=== PATIENT | female | born 1995 | race Caucasian/White ===

== ENCOUNTER 2020-05-31 06:51 | Inpatient (IN) | payer OTHER, SELFPAY ==
[2020-05-31] VITALS (96 sets, daily range): BP systolic 95–142; BP diastolic 53–96; PULSE 40–160; RESP 18; TEMP 35.6–36.9; O2SAT 83–100; BMI 33.5
[2020-05-31 07:46] LABS: Basophils Percent Auto 0.2 % (0.2-1.2); Eosinophils Absolute Auto 0.1 K/mm3 (0-0.3); Eosinophils Percent Auto 0.9 % (0-4.4); Hematocrit 33.4 % (37.0-47.0); Hemoglobin 11.6 g/dL (12.0-15.0); Immature Granulocyte Absolute 0.07 K/mm3 (0.00-0.031); Immature Granulocyte Percent A 0.8 % (0-0.5); Lymphocytes Absolute Auto 2.22 K/mm3 (0.9-3.2); Lymphocytes Percent Auto 24.9 % (18.3-44.2); Mean Corpuscular HGB Conc 34.7 g/dl (32-36); Mean Corpuscular Hemoglobin 29.1 pg (26-34); Mean Corpuscular Volume 83.9 fl (80-100); Mean Platelet Volume 10.3 fl (7.4-10.4); Monocytes Absolute Auto 0.5 K/mm3 (0.1-0.6); Neutrophils Absolute Auto 6.1 K/mm3 (1.3-6.7); Neutrophils Percent Auto 68.2 % (45.5-73.1); Platelet Count Result 228 k/mm3 (150-375); Red Blood Count 3.98 M/mm3 (4.2-5.4); Red Cell Distribution Width 12.9 % (11.5-14.5); White Blood Count 8.9 K/mm3 (4.5-10.0)
--- NOTE | 2020-05-31 07:50 | WPDOBADMIT ---
Obstetrics - Admit Note Admission Note: record reviewed. No pertinent additions to the history and/or any subsequent changes in the physical findings that are not consistent with the expected course of the were found. MIL , postdates, atttempted arom, /-3, Additions to the history and/or subsequent changes in the physical findings follow. None.
--- NOTE | 2020-05-31 07:55 | P.PNAN_ITS ---
Anes - Eval Pre Procedure Procedure: labor epidural Date/Time: 05/31/20 07:55 Preop Diagnosis: labor pain Pre Op Diagnosis: Induction of Labor Patient Data Age: 24 Gender: F Height: Weight: Last Vital Signs Temp 36.1 C L 05/31/20 07:52 Pulse 107 H 05/31/20 07:46 BP 127/84 05/31/20 07:46 Allergies Allergy/AdvReac Type Severity Reaction Status Date / Time Penicillins Allergy Mild Rash Verified 04/27/20 12:35 Home Medications Medication Instructions Recorded Confirmed Type PNV cmb#95-ferrous fumarate-FA 1 tablet PO DAILY 04/27/20 04/27/20 History [] aspirin [Aspirin Childrens] 81 mg PO DAILY 04/27/20 04/27/20 History cranberry-B.keqorsoe-X-Qv phos 1 tablet PO 04/27/20 History [Cranberry-Probiotic] ferrous sulfate 143 mg PO DAILY 04/27/20 04/27/20 History Laboratory Tests 05/31/20 05/31/20 07:30 07:30 WBC 8.9 K/mm3 K/mm3 (4.5-10.0) RBC 3.98 M/mm3 L M/mm3 (4.2-5.4) Hgb 11.6 g/dL L g/dL (12.0-15.0) Hct 33.4 % L % (37.0-47.0) MCV 83.9 fl fl (80-100) MCH 29.1 pg pg (26-34) MCHC 34.7 g/dl g/dl (32-36) RDW 12.9 % % (11.5-14.5) Plt Count 228 k/mm3 k/mm3 (150-375) MPV 10.3 fl fl (7.4-10.4) Immature Gran % (Auto) 0.8 % H % (0-0.5) Neut % (Auto) 68.2 % % (45.5-73.1) Lymph % (Auto) 24.9 % % (18.3-44.2) [place] % (Auto) 5.0 % % (2.6-8.5) Eos % (Auto) 0.9 % % (0-4.4) Baso % (Auto) 0.2 % % (0.2-1.2) Lymph # (Auto) 2.22 K/mm3 K/mm3 (0.9-3.2) [place] # (Auto) 0.5 K/mm3 K/mm3 (0.1-0.6) Eos # (Auto) 0.1 K/mm3 K/mm3 (0-0.3) Baso # (Auto) 0.0 K/mm3 K/mm3 (0.0-0.1) Abs Immat Gran (auto) 0.07 K/mm3 H K/mm3 (0.00-0.031) Absolute Neuts (auto) 6.1 K/mm3 K/mm3 (1.3-6.7) Absolute Nucleated RBC 0.0 K/mm3 K/mm3 (0.0-0.012) Nucleated RBC % 0.0 % % (0.0-0.2) RPR Pending Patient hx anesthesia problems: none Family hx anesthesia problems: none PMFSH Family History Family History (Updated 04/27/20 @ 12:50 by Magi Walton RN) Grandparent Cancer Hypertension Diabetes mellitus type 2, controlled Mother Hypertension Sibling Hypertension Social History Social History Substance use: never Spiritual care concerns: No Exam Day of Procedure 05/31/20 07:55
[2020-05-31] MEDS: LACTATED RINGERS 1,000 ML 125 ML IV CONT ×4 (08:08→18:43)
[2020-05-31] MEDS: OXYTOCIN 30 UNITS/NS 500 ML 30 UNITS/500 ML BAG IV CONT (08:08)
--- NOTE | 2020-05-31 08:25 | LDADM ---
This patient, Barbara Mancini, was admitted to Labor/Delivery/Recovery 103 on 05/31/20 at 06:51. Plans for labor, pain management and were discussed with patient. Patient/family oriented to hospital policies and general routines including ID bracelet, bed and alarms, visiting hours, pain management, procedures, bathroom and other care routines, personal items, smoking policy, room service/diet and guest tray routines, infant security routines, and visiting hours. Patient/Family are encouraged to report perceived risks to care and to ask questions if they do not understand what they are told or what they should do. See OBIX for further documentation.
[2020-05-31] MEDS: ONDANSETRON INJ 4 MG/2 ML VIAL IV PUSH (18:42)
--- NOTE | 2020-05-31 19:45 | PM.OBPRVD ---
OB - Delivery Note Procedure Delivery date: 05/31/20 Procedure: vaginal delivery Intrapartal events: None Induction method: AROM and per pitocin protocol Delivery monitor: external FHT and external uterine Route of delivery: Laceration description: Perineal - 1st Degree Delivery repair: vicryl Specimen: No Estimated blood loss (mL): 135 Anesthesia type: Epidural Disposition: other () Baby Date of : 05/31/20 Time of : 19:26 Weeks of gestation at delivery: 40 gender: Female Weight (pounds): 7 Weight (ounces): 5 presentation: vertex position: Left Occiput Anterior Placenta delivery description: Spontaneous cord vessel description: 3 Vessels and Clamped/Cut score one minute: 9 score five minutes: 9 Narrative: delayed cord clamping, skin to skin, mother and baby in stable condition. Roselyn ADLER present
[2020-05-31] MEDS: OXYTOCIN 30 UNITS/NS 500 ML 30 UNITS/500 ML BAG 125 UNITS IV CONT (20:00)
[2020-05-31] MEDS: WITCH HAZEL 40 PADS 1 PAD TOPICAL (20:12)
[2020-05-31] MEDS: BENZOCAINE 20% AER SPR (*SP) 56 GM CAN 1 SPRAY TOPICAL (20:12)
[2020-05-31] MEDS: ACETAMINOPHEN 500 MG TABLET 1000 MG PO (20:13)
[2020-05-31] MEDS: IBUPROFEN 600 MG TABLET PO (22:37)
[2020-06-01 05:19] LABS: Hematocrit 31.6 % (37.0-47.0); Hemoglobin 10.6 g/dL (12.0-15.0)
--- NOTE | 2020-06-01 07:21 | WPDANLDPN2 ---
Anes-Prog Note L&D Date/Time: 06/01/20 07:21 Comfortable throughout: labor and delivery Neuraxial method: epidural Epidural/Spinal procedure site: clean & non-tender Neuro status: Neuro function grossly intact. Cardiovascular status: normal Respiratory status: normal Airway patency: baseline Mental status: baseline Post-Op hydration status: normal Vital Signs: Last Vital Signs Temp 36.8 C 05/31/20 22:25 Pulse 89 05/31/20 22:25 Resp 18 05/31/20 22:25 BP 113/72 05/31/20 22:25 Pulse Ox 83 L 05/31/20 19:27 I/O: Intake & Output 05/31/20 05/31/20 06/01/20 15:59 23:59 07:59 Intake Total 1000 3500 Output Total 900 135 Balance 100 3365 Post-procedural complaints: none Patient feedback: Patient satisfied with anesthetic care.
--- NOTE | 2020-06-01 07:24 | P.PNOB_ITS ---
OB - PN: Subj Subjective Date/time seen: 06/01/20 07:24 OB - PN: Obj Data Labs CBC & Chem 7: 06/01/20 04:24 Labs: Laboratory Results - last 24 hr 05/31/20 05/31/20 06/01/20 07:30 07:30 04:24 WBC 8.9 RBC 3.98 L Hgb 11.6 L 10.6 L Hct 33.4 L 31.6 L MCV 83.9 MCH 29.1 MCHC 34.7 RDW 12.9 Plt Count 228 MPV 10.3 Immature Gran % (Auto) 0.8 H Neut % (Auto) 68.2 Lymph % (Auto) 24.9 [place] % (Auto) 5.0 Eos % (Auto) 0.9 Baso % (Auto) 0.2 Lymph # (Auto) 2.22 [place] # (Auto) 0.5 Eos # (Auto) 0.1 Baso # (Auto) 0.0 Abs Immat Gran (auto) 0.07 H Absolute Neuts (auto) 6.1 Absolute Nucleated RBC 0.0 Nucleated RBC % 0.0 Blood Type O Positive Antibody Screen Negative OB - PN A/P Plan day: 1 Plan: routine care Time Spent With Patient Time: Total time spent is greater than 50% in coordination of care (as documented) at patient's floor/unit and/or counseling patient: Review of Systems Review of Systems: All systems reviewed & are unremarkable except as noted in HPI and below Exam Const: General: comfortable Resp: Effort & Inspection: normal respiratory effort Psych: Appearance: grossly normal Affect: normal affect Attitude: cooperative Judgement: Good judgement present (Psych)
[2020-06-01] MEDS: IBUPROFEN 600 MG TABLET PO ×2 (07:52→15:15)
[2020-06-01] MEDS: DOCUSATE SODIUM 100 MG CAPSULE PO ×2 (07:52→16:43)
[2020-06-01] MEDS: MULTIVIT/MIN/PREN/FOL AC/IRON TABLET 1 TAB PO (07:52)
[2020-06-01] MEDS: ACETAMINOPHEN 325 MG TABLET 650 MG PO ×3 (07:52→16:42)
[2020-06-01] MEDS: TETANUS,DIPHTHERIA,AC PERTUSSIS ADULT (0.5 ML) BOOSTRIX IM (07:53)
--- NOTE | 2020-06-01 08:00 | PC.NURSE ---
Pt introductions made and plan of care discussed per post , pain management, breast feeding, daily care activities and pending discharge to home. PT verbalized understanding of such care
[2020-06-01 08:05] VITALS: BP 125/84; PULSE 84; RESP 18; TEMP 36.2; O2SAT 99
--- NOTE | 2020-06-01 11:05 | PC.NURSE ---
Observed mother is able to independently latch with appropriate positioning/alignment. Mother reports this to be 3rd child to breastfeed, denying issues with other children. She denies any nipple discomfort, is feeding as required and waking to feed if needed. Infant has had at least 6 since effective feedings in the past 24 hours, and is currently meeting outcomes for weight, output, jaundice and feeding frequencies. Mother states she feels confident to continue effective at home. Reviewed transition to breast milk, signs of adequate intake, and engorgement/relief. Instructed to call ICP if intake/output less than required. Reviewed regular medications mother is taking. Information provided per Francia. Reviewed community resources on the [facility] website and in the Mom/Baby guide. Information on outpatient services provided. Mother has no further questions at this time.
[2020-06-01 11:40] LABS: Rapid Plasma Reagin Non-Reactive (NonReactive)
[2020-06-02 10:48] VITALS: BP 120/68; PULSE 87; RESP 20; TEMP 36.3; O2SAT 100
--- NOTE | 2020-06-03 07:26 | PM.OBDSVD ---
DS: Admitting Diagnosis Admitting Diagnosis Admitting Diagnosis: Induction of Labor OB - DS: Summary OB Procedures : None OB Procedures Intrapartum: Spontaneous Vag Delivery OB Procedures: : None Time Spent with Patient Time attestation: Total time spent providing and/or coordinating discharge services: Discharge Plan Discharge Discharging Clinician: Sharon Tate Patient Disposition: Home, Self-Care Activity: pelvic rest Diet: regular Discharge Instructions: Education: Mom and Baby Guide Given to: Mother Follow-Up: Call your delivering provider's office for an appointment to be seen in: 4 Weeks Mom and baby should come to the [facility] for the follow-up appointment. Appointment Date/Time: June 02, 2020 at 10:00 am What to expect at your follow-up visit: Blood Pressure Check Call [phone] if you are unable to keep your appointment time. BREAST CARE: * Wear a snug supportive bra. * For engorgement discomfort: Breast Feeding: * Apply warm moist washcloths * Express milk as needed to relieve engorgement * Wear loose clothing Bottle Feeding: * May apply ice packs * For sore nipples: * Identify correct latch-on * Apply warm moist washcloths before and after nursing * Air dry nipples after nursing * May apply [place] cream to nipples PERINEAL CARE: * Until bleeding stops, use your eliza bottle after urinating * Change your pad frequently throughout the day * You may take sitz baths several times a day (fill your bathtub with warm water and soak for 20 minutes.) Do NOT bathe in the water * No tub baths until seen by your physician - You may shower ACTIVITY: * Rest as much as possible. * Do not exercise or lift anything heavier than your baby (such as laundry or other children.) * Avoid stairs or driving as much as possible. * Do not put anything into the vagina. No douching, tampons, or sexual activity until seen by physician. NOTIFY PHYSICIAN IF YOU HAVE ANY QUESTIONS OR IF ANY OF THE FOLLOWING SYMPTOMS OCCUR: * If your perineum becomes red, swollen, or more painful than what you have experienced in the hospital. * If your vaginal bleeding becomes foul smelling. * If your vaginal bleeding becomes more heavy than a period or if your bleeding changes from pink to bright red. However, you may pass an occasional walnut-sized clot once or twice for the first week . * If you experience a sharp, shooting pain in you calves. * If you discover a hard, reddened area on your breast or if you experience flu-like symptoms. * If you have a fever of 100.4 or greater DIET: * Eat regular, well-balanced meals. * Drink plenty of fluids daily. If , drink to thirst. Patient Instructions: Antibiotic Form Stand Alone Forms: General Discharge Information Follow-up/Referrals: Sharon Tate CNM [Certified Nurse Net Mender] - 4 Weeks Discharge Medications: Continued ferrous sulfate 143 mg (45 mg iron) Tablet Extended Release 143 mg PO DAILY RF: 0 PNV cmb#95-ferrous fumarate-FA [] 28 mg iron- 800 mcg Tablet 1 tablet PO DAILY RF: 0 Discontinued aspirin [Aspirin Childrens] 81 mg Tablet,Chewable 81 mg PO DAILY RF: 0 Date of admission: 05/31/20 06:51 Primary Care Provider: Jenni Dumont Admitting Provider: Sami Camejo Discharge Date/Time: 06/01/20 22:10 Attending physician on admission: Sami Camejo
== END 2020-06-01 22:10 | disposition home or self-care (01) | DRG 807 ==
LOC: ANHLDR 07:29 → ANHOB2 22:04
PROVIDERS: Advanced Practice Midwife; Admitting Provider Obstetrics & Gynecology; PCP Advanced Practice Midwife; Visit Provider Obstetrics & Gynecology
DX: O48.0 Post-term pregnancy (principal); Z37.0 Single live birth; Z3A.40 40 weeks gestation of pregnancy; O70.0 First degree perineal laceration during delivery
CPT/HCPCS: 36415; 85014; 85018; 85025; 86592; 86850; 86900; 86901; 90715; A9270; J2405; J2590; J2795; J3010; J7120